=== PATIENT | male | born 1965 | race Caucasian/White ===

== ENCOUNTER 2016-04-07 05:59 | Day surgery (SDC) | payer BC ==
[2016-04-04 14:02] LABS: BASOPHILS 0.4 %; BASOPHILS ABSOLUTE 0.03 10/3/uL (0.0-0.16); EOSINOPHILS 0.3 %; EOSINOPHILS ABSOLUTE 0.02 10/3/uL (0.0-0.53); HEMATOCRIT 39.4 % (40.0-51.0); HEMOGLOBIN 13.2 g/dL (13.6-17.8); IMMATURE GRANULOCYTES 0.1 %; IMMATURE GRANULOCYTES ABSOLUTE 0.01 10/3/uL (0.0-0.11); LYMPHOCYTES ABSOLUTE 2.64 10/3/uL (0.67-4.30); MANUAL DIFF NO %; MEAN CORPUS HGB CONC 33.5 g/dL (32.0-36.0); MEAN CORPUSCULAR HEMOGLOB 28.8 pg (26.0-34.0); MEAN CORPUSCULAR VOLUME 85.8 fL (80-100); MEAN PLATELET VOLUME 11.4 fL (9.2-13.0); MONOCYTES 8.4 %; MONOCYTES ABSOLUTE 0.62 10/3/uL (0.21-1.20); NEUTROPHILS 54.8 %; NEUTROPHILS ABSOLUTE 4.02 10/3/uL (2.02-8.40); PLATELET COUNT 341 10/3/uL (150-400); RBC DISTRIBUTION WIDTH 14.4 % (12.0-16.0); RED CELL COUNT 4.59 10/6/uL (4.7-6.1); WHITE BLOOD CELLS 7.3 10/3/uL (4.5-10.5)
[2016-04-04 14:15] LABS: BUN (BLOOD UREA NITROGEN) 13 MG/DL (6-23); CALCIUM, SERUM 9.2 MG/DL (8.5-10.4); CHLORIDE, SERUM 103 MMOL/L (96-112); CO2 (CARBON DIOXIDE) 30 MMOL/L (24-34); CREATININE 0.91 MG/DL (0.70-1.30); GFR AFRICAN AMERICAN 115 ML/MIN (>=60); GFR NON AFRICAN AMERICAN 99 ML/MIN (>=60); GLUCOSE, SERUM 84 MG/DL (60-99); POTASSIUM, SERUM 4.2 MMOL/L (3.5-5.3); SODIUM, SERUM 139 MMOL/L (135-148)
[2016-04-04 14:16] LABS: ASCORBIC ACID (UR NOT ORDER) NEG (NEG); BILIRUBIN, URINE NEGATIVE (NEG); KETONE, URINE NEGATIVE (NEG); LEUKOCYTE ESTERASE(NOT OR NEG (NEG); WBC (NOT ORDERED) (RFLEX) 5 (0-5)
--- NOTE | ~2016-04-07 | OP ---
Record Of Operation [facility] [address] [place]. [address] NAME: ELIZA NUÑEZ : [birth year] STATUS : REG [facility]#: [id number] AGE: 50 ADM/REG DATE : 04/07/16 MR#: [id number] REPORT SERV DATE: 04/07/16 DICTATED BY: MISSY VELA DATE: 04/07/16 REPORT STATUS : Draft TRANSCRIBED BY: MODL DATE: 04/07/16 DATE OF PROCEDURE: 04/07/2016 PREOPERATIVE DIAGNOSIS: Left ureteral stone. POSTOPERATIVE DIAGNOSIS: Left ureteral stone. PROCEDURE PERFORMED: Left ESWL (UPJ stone, initial treatment). SURGEON: Missy Vela M.D. ANESTHESIA: General. COMPLICATIONS: None. DRAINS: None. INDICATION: Mr. Nuñez is a 50-year-old with symptomatic left 7 mm proximal ureteral/UPJ stone. He presents for ESWL. TECHNIQUE: Informed consent was obtained. He was brought to the operating room. General anesthesia was administered. Genitals and perineum were prepped and draped. Monitored anesthesia care was administered. Stone appeared to be at the UPJ. IV contrast was given. I identified that the left upper quadrant calcification was a UPJ/proximal ureteral calculus. The stone was identified with biplanar fluoroscopy and a total of 3000 shocks were administered at a maximum power level of 7. Shocks were administered at 120 shocks per minute, appeared to be good fragmentation of the stone. He will follow up in two weeks with a KUB. He is already on fentanyl patch for pain control from another physician. As such, no prescription for pain medicine was given. MOE/LAMONT Missy Vela M.D. / [phone] CC: Myke Claros II, M.D.
[~2016-04-07 05:59] MED LIST: CIP5 PO; CYMBALTA60 PO; DURA75 TOP; NEUR800 PO; NORVIR100 PO; PREZISTA800 MG PO; TIVICAY50 MG PO; VIREAD300 MG PO
[2016-06-16] MEDS ORDERED: LIOR10 PO (09:52)
== END 2016-04-07 23:59 | disposition home or self-care (01) ==
LOC: SDC 05:59
PROVIDERS: Urology
PROC: 0TF4XZZ Fragmentation in Left Kidney Pelvis, External Approach (ICD-10-PCS; 2016-04-07)
PROC: 0TF7XZZ Fragmentation in Left Ureter, External Approach (ICD-10-PCS; principal; 2016-04-07 08:00)
DX: N20.1 Calculus of ureter (principal); Z79.899 Other long term (current) drug therapy; H54.41 Blindness, right eye, normal vision left eye; R53.1 Weakness
CPT/HCPCS: 50590; 74000; 80048; 81001; 85025; A9270-GY; J2250; J2405; J3010; J3370; Q9967

== ENCOUNTER 2016-05-03 10:36 | Day surgery (SDC) | payer BC, OTHER ==
[2016-04-26 16:22] LABS: HEMATOCRIT 38.6 % (40.0-51.0); HEMOGLOBIN 12.6 g/dL (13.6-17.8)
--- NOTE | ~2016-05-03 | OP ---
Record Of Operation [facility] [address] [place]. [address] NAME: ELIZA NUÑEZ : 69 STATUS : [facility]#: [id number] AGE: 50 ADM/REG DATE : 05/03/16 MR#: [id number] REPORT SERV DATE: 05/03/16 DICTATED BY: MISSY VELA DATE: 05/03/16 REPORT STATUS : Draft TRANSCRIBED BY: MODL DATE: 05/03/16 DATE OF PROCEDURE: 05/03/2016 PREOPERATIVE DIAGNOSIS: Left kidney stones. POSTOPERATIVE DIAGNOSIS: Left kidney stones. PROCEDURE PERFORMED: 1. Left ureteroscopy, stone extraction. 2. Left retrograde pyelogram. 3. Left ureter stent placement surgery. SURGEON: Missy Vela M.D. ANESTHESIA: General. DRAINS: A 28 cm 6-Tuvaluan left ureter stent. COMPLICATIONS: None. SPECIMENS: Left kidney stone fragments for chemical analysis. INDICATION: Mr. Nuñez is a 50-year-old who presented with a 7 mm left upper ureteral stone. He had shock wave lithotripsy performed and passed very few fragments. Followup KUB showed that the bulk of the stone have settled into the lower pole left kidney. He opted for ureteroscopic treatment of these stones. He has a known left renal mass. There is a planned left partial nephrectomy upcoming in the near future, elsewhere. TECHNIQUE: Informed consent was obtained, received Levaquin in preop, brought to the operating room, and general anesthesia was administered. Genitals and perineum were prepped and draped in the lithotomy position in sterile fashion. Rigid cystoscopy was performed. The urethra was normal. Prostate was nonobstructive. There were some small stone fragments in the bladder. These were evacuated through the scope. Clear efflux on the right and the left. Left retrograde pyelogram was performed. There was smooth left ureteral contour with no hydronephrosis or hydroureter. A stone/cluster of stones was present in the left lower pole. These were calcified. A wire was passed up to the left kidney. An 11-Tuvaluan ureteral access sheath 35 cm was passed up to the left upper ureter. Flexible ureteroscopy was performed. Stones were only visualized in the lower pole. The calcification in the lower pole was a cluster of innumerable small stones. The largest 50 or so fragments were basket extracted with the NGage basket. Fragments smaller than 1 mm would not fit in the basket. I flushed these out with irrigation as best I could. The renal pelvis and all other calices were inspected. No other stone or lesion was seen. Retrograde pyelogram was repeated. There was mild hydronephrosis and no extravasation. I Record Of Operation [facility] [address] [place]. [address] NAME: ELIZA NUÑEZ : [birth year] STATUS : [facility]#: [id number] AGE: 50 ADM/REG DATE : 05/03/16 MR#: [id number] REPORT SERV DATE: 05/03/16 DICTATED BY: MISSY VELA DATE: 05/03/16 REPORT STATUS : Draft TRANSCRIBED BY: LAMONT DATE: 05/03/16 left the wire in place and removed the access sheath and ureteroscope. Under fluoroscopic guidance, I placed a 28 cm, 6-Tuvaluan left ureter stent. The coil was confirmed fluoroscopically in the lower pole calyx and fluoroscopically in the bladder. The dangling string was externalized and secured to the penis with Tegaderm. He will remove this at home on postop day #5. He is due to have a left partial nephrectomy in three to four in three weeks time in the [facility]. I will see him back in one year. MOE/LAMONT Missy Vela M.D. / [phone] CC: Myke Claros II, M.D.
[2016-05-09 20:06] LABS: SOURCE OF STONE Left Kidney (()); STONE COMPOSITION TWO DNR (())
[2016-06-16] MEDS ORDERED: LIOR10 PO (09:52)
== END 2016-05-03 16:10 | disposition home or self-care (01) ==
LOC: SDC 10:36
PROVIDERS: Urology
PROC: 0TC18ZZ Extirpation of Matter from Left Kidney, Via Natural or Artificial Opening Endoscopic (ICD-10-PCS; 2016-05-03)
PROC: BT1FYZZ Fluoroscopy of Left Kidney, Ureter and Bladder using Other Contrast (ICD-10-PCS; 2016-05-03)
PROC: 0T778DZ Dilation of Left Ureter with Intraluminal Device, Via Natural or Artificial Opening Endoscopic (ICD-10-PCS; principal; 2016-05-03 06:45)
DX: N13.2 Hydronephrosis with renal and ureteral calculous obstruction (principal); R53.1 Weakness; Z79.899 Other long term (current) drug therapy; Z87.442 Personal history of urinary calculi; Z90.49 Acquired absence of other specified parts of digestive tract; Z98.890 Other specified postprocedural states
CPT/HCPCS: 74420; 82365; 85014; 85018; C1758; C1769; C1894; C2617; J2250; J2405; J2710; J3010; Q9967

== ENCOUNTER 2016-06-22 08:55 | Day surgery (SDC) | payer BC, OTHER ==
--- NOTE | ~2016-06-22 | EGD ---
EGD REPORT [facility] [address] [address] NAME: RAFA NUÑEZ : 69 STATUS : REG [facility] [place] PAT#: [id number] AGE: 50 ADM/REG DATE : 06/22/16 MR#: [id number] REPORT SERV DATE: 06/22/16 DICTATED BY: PIA VILLELA DATE: 06/22/16 REPORT STATUS : Draft [facility] DATE: 06/22/16 Endoscopy Center Patient Name: Rafa Nuñez Date of : 1965 Attending MD: LINH VILLELA MD Procedure Date No Time: 06/22/2016 Procedure: Colonoscopy Indications: Lower abdominal pain, Constipation Referring MD: MISSY NAVARRETE II Medicines: See the Anesthesia note for documentation of the administered medications Complications: No immediate complications. Estimated blood loss: None. Procedure: Pre-Anesthesia Assessment: - ASA Grade Assessment: III - A patient with severe systemic disease. - Prior to the procedure, a History and Physical was performed, and patient medications and allergies were reviewed. The patient's tolerance of previous anesthesia was also reviewed. The risks and benefits of the procedure and the sedation options and risks were discussed with the patient. All questions were answered, and informed consent was obtained. Prior Anticoagulants: The patient has taken no previous anticoagulant or antiplatelet agents. After reviewing the risks and benefits, the patient was deemed in satisfactory condition to undergo the procedure. After I obtained informed consent, the scope was passed under direct vision. Throughout the procedure, the patient's blood pressure, pulse, and oxygen saturations were monitored continuously. The PCF [id number] was introduced through the anus and advanced to the terminal ileum. The ileocecal valve, appendiceal orifice, terminal ileum and rectum were photographed. The entire colon was examined. The colonoscopy was performed without difficulty. The patient tolerated the procedure well. The quality of the bowel preparation was fair. Findings: The perianal and digital rectal examinations were normal. The terminal ileum appeared normal. A sessile polyp was found at 30 cm proximal to the anus. The polyp was 6 mm in size. The polyp was removed with a cold snare. Resection and retrieval were complete. Non-bleeding internal hemorrhoids were found during retroflexion and were Grade I (internal hemorrhoids that do not prolapse). EGD REPORT [facility] [id number] [facility] [place]. [address] NAME: RAFA NUÑEZ : [birth year] STATUS : REG [facility]#: [id number] AGE: 50 ADM/REG DATE : 06/22/16 MR#: [id number] REPORT SERV DATE: 06/22/16 DICTATED BY: PIA VILLELA DATE: 06/22/16 REPORT STATUS : Draft TRANSCRIBED BY: [place] DATE: 06/22/16 No other significant abnormalities were identified in a careful examination of the remainder of the colon. Impression: - The examined portion of the ileum was normal. - One 6 mm polyp at 30 cm proximal to the anus. Resected and retrieved. - Non-bleeding internal hemorrhoids. Recommendation: - Patient has a contact number available for emergencies. The signs and symptoms of potential delayed complications were discussed with the patient. Return to normal activities tomorrow. Written discharge instructions were provided to the patient. - Regular diet. - Discharge patient to home. - Continue present medications. - Await pathology results. - Repeat colonoscopy in 5 years for surveillance. Procedure Code(s): --- Professional --- 88666, Colonoscopy, flexible, proximal to splenic flexure; with removal of tumor(s), polyp(s), or other lesion(s) by snare technique Diagnosis Code(s): --- Professional --- K64.0, First degree hemorrhoids D12.6, Benign neoplasm of colon, unspecified R10.30, Lower abdominal pain, unspecified K59.00, Constipation, unspecified CPT copyright 2013 [employer]. All rights reserved. The codes documented in this report are preliminary and upon base remover review may be revised to meet current compliance requirements. LINH VILLELA MD 06/22/2016 11:07 AM This report has been signed electronically. Number of Addenda: 0 Note Initiated On: 06/22/2016 10:25 AM Scope Withdrawal Time 0 hours 12 minutes 29 seconds [id number] [place] [id number]
[~2016-06-22 08:55] MED LIST changes: +LIOR10 PO
== END 2016-06-22 23:59 | disposition home health service (06) ==
LOC: DMU 08:55
PROVIDERS: Internal Medicine Gastroenterology
PROC: 0DBN8ZZ Excision of Sigmoid Colon, Via Natural or Artificial Opening Endoscopic (ICD-10-PCS; principal; 2016-06-22 10:30)
DX: D12.6 Benign neoplasm of colon, unspecified (principal); K64.0 First degree hemorrhoids; B20 Human immunodeficiency virus [HIV] disease; Z79.899 Other long term (current) drug therapy; Z87.891 Personal history of nicotine dependence; Z90.49 Acquired absence of other specified parts of digestive tract; Z87.442 Personal history of urinary calculi; Z98.890 Other specified postprocedural states
CPT/HCPCS: 88305